=== PATIENT | male | born 1970 | race Caucasian/White ===

== ENCOUNTER → 2016-05-30 | Outpatient (CLI) | payer BC ==
--- NOTE | 2016-05-30 14:37 | XR ---
Limited cervical spine HISTORY: Neck pain, headaches 3 views of the cervical spine Cervical vertebral bodies show preserved height, near anatomic alignment, and bone mineralization is normal. Minimal retrolisthesis grade 1 C3-4, anterolisthesis grade 1 C4-5. There is loss of normal ce rvical lordosis. Loss of disc height present at C5-6 and C6-7 with associated spondylosis. Prevertebr al soft tissues are normal. IMPRESSION: Degenerative disc disease. Loss of cervical lordosis.
== END | disposition home or self-care (01) ==
LOC: RADXRMAIN 12:23
PROVIDERS: ATTEND Family Medicine
DX: M50.322 Other cervical disc degeneration at C5-C6 level (principal)
CPT/HCPCS: 72040

== ENCOUNTER → 2016-08-18 | Outpatient (CLI) | payer BC ==
--- NOTE | 2016-08-18 13:08 | CT ---
EXAMINATION TYPE: CT soft tissue neck w con DATE OF EXAM: 08/18/2016 12:39 PM COMPARISON: NONE HISTORY: Lt sided swelling, sore throat CT DLP: 315.2 mGycm CONTRAST: CT scan of the neck is performed with IV Contrast, patient injected with 100 mL of Omnipaque 300. Contrast enhanced CT of the neck was performed from the skull base through the lung apices. AIRWAY: The supraglottic, glottic, and subglottic portions of the airway appear patent and free of mass. SALIVARY GLANDS: The submandibular and parotid glands are free of mass or inflammatory process. THYROID GLAND: No nodules or masses seen. LYMPH NODES: No adenopathy seen greater than 1cm. LUNG APICES: No nodule or mass is seen. OTHER: Vascular structures are patent. Mild significant degenerative change of the cervical spine. No abscess seen. IMPRESSION: No significant abnormality to account for patient's symptoms.
== END | disposition home or self-care (01) ==
LOC: RADCTMAIN 09:25
PROVIDERS: ATTEND Otolaryngology
DX: R07.0 Pain in throat (principal); R22.1 Localized swelling, mass and lump, neck
CPT/HCPCS: 70491; Q9967; 31579

== ENCOUNTER → 2016-08-18 | Outpatient (CLI) | payer BC | END | disposition home or self-care (01) | LOC: PTMAIN 09:21 | PROVIDERS: ATTEND Otolaryngology | DX: K21.9 Gastro-esophageal reflux disease without esophagitis (principal) | CPT/HCPCS: 31579 ==

== ENCOUNTER → 2016-09-19 | Outpatient (CLI) | payer BC ==
--- NOTE | 2016-09-19 10:54 | FL ---
EXAMINATION TYPE: FL barium swallow DATE OF EXAM: 09/19/2016 COMPARISON: NONE HISTORY: Vocal cord abnormality, possible aspiration TECHNIQUE: Double air-contrast technique esophagram FINDINGS: Double air-contrast technique is utilized to evaluate the esophagus. The esophagus dilates to normal caliber has normal contour to the gastroesophageal junction. Gastroesophageal junction open s to normal caliber. This is best visualized on the fluoroscopy images. The esophageal bolus is propelled to the gastroesophageal junction. A secondary contraction was evide nt during swallowing. Tertiary contractions are evident within the distal esophagus. There are findin gs suggestive for some gastroesophageal reflux during the examination. IMPRESSION: 1. Secondary and tertiary contractions. Correlate for presbyesophagus. 2. Gastroesophageal reflux.
== END | disposition home or self-care (01) ==
LOC: RADFLWHC 09:41
PROVIDERS: ATTEND Otolaryngology
DX: K21.9 Gastro-esophageal reflux disease without esophagitis (principal)
CPT/HCPCS: 74220

== ENCOUNTER → 2018-10-29 | Outpatient (CLI) | payer BC ==
--- NOTE | 2018-10-29 13:19 | US ---
EXAMINATION TYPE: US abdomen complete DATE OF EXAM: 10/29/2018 COMPARISON: US 2013, CT 2010 CLINICAL HISTORY: R10.31 Abdominal Pain Rt lower quadrant. Intermittent RLQ pain x 1 month, history o f cholecystectomy. EXAM MEASUREMENTS: Liver Length: 14.6 cm Gallbladder Wall: surgically absent CBD: 0.4 cm Spleen: 9.8 cm Right Kidney: 11.2 x 4.4 x 5.9 cm Left Kidney: 10.5 x 4.8 x 4.6 cm Pancreas: limited by overlying midline bowel gas Liver: heterogeneous Gallbladder: surgically absent Evidence for sonographic Rodriguez's sign: no CBD: visualized portions wnl, limited by overlying midline bowel gas Spleen: 0.3cm echogenic focus Right Kidney: wnl Left Kidney: wnl Upper IVC: wnl Abd Aorta: visualized portions wnl, limited by overlying midline bowel gas Scanned RLQ at patient's area of pain: no abnormality seen at this time The liver is heterogenous The intrahepatic portion of the IVC and proximal abdominal aorta are within normal limits. The gallbladder surgically absent. Common bile duct is unremarkable. The visualized portions of the pancreas are homogenous. The spleen is unremarkable. Kidneys are symmetric and free of hydronephrosis. No renal lesions are seen. IMPRESSION: 1. Hepatic heterogeneity may reflect underlying fatty hepatic infiltration.
== END | disposition home or self-care (01) ==
LOC: RADUSWWP 10:15
PROVIDERS: ATTEND Internal Medicine
DX: R93.2 Abnormal findings on diagnostic imaging of liver and biliary tract (principal); R10.31 Right lower quadrant pain
CPT/HCPCS: 76700

== ENCOUNTER → 2019-02-19 | Outpatient (CLI) | payer BC ==
[2019-02-19 17:01] LABS: African American GFR (CKD) 102.7 (60.0-200.0); Albumin 4.7 g/dL (3.80-4.90); Albumin/Globulin Ratio 2.61 (1.60-3.17); Anion Gap 5.6 mmol/L (4.00-12.00); Calcium 9.8 mg/dL (8.7-10.3); Carbon Dioxide 29.4 mmol/L (21.6-31.8); Chol/HDL Ratio 3.64; Globulin 1.8 g/dL (1.6-3.3); LDL Cholesterol,Calculated 66.4 mg/dL (0.0-131.0); Potassium 4.6 mmol/L (3.5-5.5); Total Bilirubin 0.7 mg/dL (0.3-1.2); Total Protein 6.5 g/dL (6.2-8.2); VLDL Calculation 28.6 mg/dL (5.00-40.00)
== END | disposition home or self-care (01) ==
LOC: LABWHC1 10:05
PROVIDERS: ATTEND Nurse Practitioner Adult Health
DX: E78.2 Mixed hyperlipidemia (principal); K21.9 Gastro-esophageal reflux disease without esophagitis
CPT/HCPCS: 36415; 80053; 80061

== ENCOUNTER 2020-04-22 11:52 | Emergency (ER) | payer BC, OTHER ==
[2020-04-22 12:01] VITALS: RESP 18
--- NOTE | 2020-04-22 12:49 | ED ---
Recheck HPI - General Chief Complaint: Recheck/Abnormal Lab/Rx Stated Complaint: Neck pain Time Seen by Provider: 04/22/20 12:04 Source: patient Mode of arrival: ambulatory Limitations: no limitations - History of Present Illness Initial Comments: Patient is a 50-year-old male presenting to the emergency department with multiple complaints. Patient states he was seen by his PCP last week for some right sided jaw upper neck pain. They thought it was related to possible dental infections and he's been on amoxicillin for the last 7 days. He does have 3 more days left. He states that he feels like the pain has only improved slightly. He states the pain is not continuous, no fever or chills. Denies any trauma. Patient is also complaining of itchy skin over the past few months. He states he's never had issues with the skin in his life. He states he feels like the itchiness is worse at night. He has tried moisturizers without any improvem ent. Patient states he also feels like he is having some mild swelling at the end of the day in both of his lower legs. He denies any history of heart disease, he does have a history of fatty liver. He denies abdominal pain, no nausea or vomiting. Patient seems very anxious, he states he does have a lot of cancers that run in his family and is afraid that something is wrong with him. He states he did call his PCP for another follow-up or they have not called him back. He states he has not had regular lab work in over one year. He has no further complaints at this time. Upon arrival to the ER, his vital signs are stable. - Related Data Home Medications Medication Instructions Recorded Confirmed Amoxicillin 875 mg PO Q12HR 04/22/20 04/22/20 Fenofibrate Nanocrystallized 48 mg PO BID 04/22/20 04/22/20 [Fenofibrate] Omeprazole 20 mg PO DAILY 04/22/20 04/22/20 Allergies Allergy/AdvReac Type Severity Reaction Status Date / Time ciprofloxacin [From Cipro] AdvReac Confusion Verified 04/22/20 13:05 ciprofloxacin HCl AdvReac Confusion Verified 04/22/20 13:05 [From Cipro] Review of Systems ROS Statement: Those systems with pertinent positive or pertinent negative responses have been documented in the HPI. ROS Other: All systems not noted in ROS Statement are negative. Past Medical History Past Medical History: Pneumonia Additional Past Medical History / Comment(s): PNEUMONIA - 2011 History of Any Multi-Drug Resistant Organisms: None Reported Past Surgical History: Cholecystectomy Additional Past Surgical History / Comment(s): CHOLY - 2013 Past Anesthesia/Blood Transfusion Reactions: No Reported Reaction Past Psychological History: No Psychological Hx Reported Smoking Status: Former smoker Past Alcohol Use History: None Reported Past Drug Use History: None Reported General Exam - General Exam Comments Initial Comments: GENERAL: Patient is well-developed and well-nourished. Patient is nontoxic and in no acute distress. HEAD: Atraumatic, normocephalic. EYES: Pupils equal round and reactive to light, extraocular movements intact, sclera anicteric, conjunctiva are normal. Eyelids were unremarkable. ENT: TMs normal, nares patent, oropharynx clear without exudates. Moist mucous membranes. NECK: Normal range of motion, supple without lymphadenopathy or JVD. LUNGS: Unlabored respirations. Breath sounds clear to auscultation bilaterally and equal. No wheezes rales or rhonchi. HEART: Regular rate and rhythm without murmurs, rubs or gallops. ABDOMEN: Soft, nontender, normoactive bowel sounds. No guarding, no rebound. No masses appreciated. : Deferred MUSCULOSKELETAL: Normal extremities with adequate strength and normal range of motion, no pitting or edema. No clubbing or cyanosis. NEUROLOGICAL: Patient is alert and oriented x 3. Motor and sensory are also intact. Cranial nerves II through XII grossly intact. Symmetrical smile. Normal speech, normal gait. PSYCH: Normal mood, normal affect. SKIN: Warm, Dry, normal turgor, no rashes or lesions noted. Limitations: no limitations Course Vital Signs 04/22/20 11:55 Temperature 98.7 F Pulse Rate 97 Respiratory 18 Rate Blood Pressure 155/82 O2 Sat by Pulse 98 Oximetry Medical Decision Making - Medical Decision Making Patient is a 50-year-old male here for multiple complaints including i ntermittent right-sided jaw pain for the last 2 months, dry/itchy skin, worse at night, and leg swelling. His vital signs are stable. Exam is unremarkable, no acute findings. No swelling of the bilateral lower legs, neurovascular intact. Did run basic labs on him, there is no acute abnormality. I discussed these findings with the patient. He is to follow-up with his regular doctor. Recommended moisturizing nighttime. He is stable for discharge. He is in agreement with this plan of care. - Lab Data Result diagrams: 04/22/20 12:40 04/22/20 12:40 Lab Results 04/22/20 04/22/20 04/22/20 Range/Units 12:40 12:40 12:40 WBC 6.4 (3.8-10.6) k/uL RBC 4.80 (4.30-5.90) m/uL Hgb 14.9 (13.0-17.5) gm/dL Hct 44.1 (39.0-53.0) % MCV 92.0 (80.0-100.0) fL MCH 31.0 (25.0-35.0) pg MCHC 33.7 (31.0-37.0) g/dL RDW 12.1 (11.5-15.5) % Plt Count 312 (150-450) k/uL MPV 7.8 Neutrophils % 71 % Lymphocytes % 19 % Monocytes % 6 % Eosinophils % 1 % Basophils % 1 % Neutrophils # 4.6 (1.3-7.7) k/uL Lymphocytes # 1.2 (1.0-4.8) k/uL Monocytes # 0.4 (0-1.0) k/uL Eosinophils # 0.1 (0-0.7) k/uL Basophils # 0.1 (0-0.2) k/uL PT 10.7 (9.0-12.0) sec INR 1.0 (<1.2) APTT 23.1 (22.0-30.0) sec Sodium 141 (137-145) mmol/L Potassium 4.1 (3.5-5.1) mmol/L Chloride 108 H (98-107) mmol/L Carbon Dioxide 26 (22-30) mmol/L Anion Gap 7 mmol/L BUN 12 (9-20) mg/dL Creatinine 1.00 (0.66-1.25) mg/dL Est GFR (CKD-EPI)AfAm >90 (>60 ml/min/1.73 sqM) Est GFR (CKD-EPI)NonAf 87 (>60 ml/min/1.73 sqM) Glucose 107 H (74-99) mg/dL Calcium 10.0 (8.4-10.2) mg/dL Total Bilirubin 0.8 (0.2-1.3) mg/dL AST 22 (17-59) U/L ALT 17 (4-49) U/L Alkaline Phosphatase 42 (38-126) U/L Total Protein 7.5 (6.3-8.2) g/dL Albumin 4.8 (3.5-5.0) g/dL Triglycerides 97 (<150) mg/dL Disposition Clinical Impression: Throat pain, Dry skin, Swelling of both lower extremities Disposition: HOME SELF-CARE Condition: Stable Instructions (If sedation given, give patient instructions): Normal Exam (ED) Additional Instructions: Please return to the Emergency Department if symptoms worsen or any other concerns. Continue and finish antibiotics. Recommend moisturizer at night such as Eucerin or Aquaphor. Follow-up with your regular physician. Is patient prescribed a controlled substance at d/c from ED?: No Referrals: Amie Torres NPC [Primary Care Provider] - 1-2 days
[2020-04-22 12:51] LABS: Basophils # (A) 0.1 k/uL (0-0.2); Basophils % (A) 1 %; Eosinophils # (A) 0.1 k/uL (0-0.7); Eosinophils % (A) 1 %; HCT 44.1 % (39.0-53.0); HGB 14.9 gm/dL (13.0-17.5); Lymphocytes # (A) 1.2 k/uL (1.0-4.8); Lymphocytes % (A) 19 %; MCHC 33.7 g/dL (31.0-37.0); Mean Platelet Volume 7.8; Monocytes # (A) 0.4 k/uL (0-1.0); Monocytes % (A) 6 %; Neutrophils # (A) 4.6 k/uL (1.3-7.7); Neutrophils % (A) 71 %; Platelet Count 312 k/uL (150-450); RDW 12.1 % (11.5-15.5); WBC 6.4 k/uL (3.8-10.6)
[2020-04-22 13:01] LABS: ALT 17 U/L (4-49); AST 22 U/L (17-59); African American GFR (CKD) >90 (>60 ml/min/1.73 sqM); Albumin 4.8 g/dL (3.5-5.0); Alkaline Phosphatase 42 U/L (38-126); Anion Gap 7 mmol/L; Blood Urea Nitrogen 12 mg/dL (9-20); Carbon Dioxide 26 mmol/L (22-30); Chloride 108 mmol/L (98-107); Glucose 107 mg/dL (74-99); Non-African American GFR(CKD) 87 (>60 ml/min/1.73 sqM); Potassium 4.1 mmol/L (3.5-5.1); Sodium 141 mmol/L (137-145); Total Bilirubin 0.8 mg/dL (0.2-1.3); Total Protein 7.5 g/dL (6.3-8.2)
[2020-04-22 13:04] LABS: Partial Thromboplastin Time 23.1 sec (22.0-30.0); Prothrombin Time 10.7 sec (9.0-12.0)
[2020-04-22 13:09] LABS: Triglycerides 97 mg/dL (<150)
[2020-04-22 13:40] VITALS: BP 120/86; PULSE 82; TEMP 98
== END 2020-04-22 13:39 | disposition home or self-care (01) ==
LOC: EC 11:52
DX: R07.0 Pain in throat (principal); M79.89 Other specified soft tissue disorders; L85.3 Xerosis cutis; Z79.899 Other long term (current) drug therapy; Z88.1 Allergy status to other antibiotic agents; Z87.891 Personal history of nicotine dependence
CPT/HCPCS: 36415; 80053; 84478; 85025; 85610; 85730; 99283

== ENCOUNTER → 2020-06-03 | Outpatient (CLI) | payer OTHER ==
--- NOTE | 2020-06-03 15:24 | CT ---
EXAMINATION TYPE: CT soft tissue neck wo con DATE OF EXAM: 06/03/2020 HISTORY: right sided neck swelling, pain with swallowing COMPARISON: 08/18/2016 CT DLP: 550.4 mGycm. Automated Exposure Control for Dose Reduction was Utilized. TECHNIQUE: CT scan of the neck is performed , patient injected with 75 mL of Isovue 300, axial image s are obtained, coronal and sagittal reformatted images are reviewed. FINDINGS: Intracranial structures and globes are symmetric. Thyroid tissue is heterogeneous. Lung api cherelle clear. Vocal cords have a normal appearance. Base of the tongue symmetric. Submandibular and paro tid glands are symmetric. Lack of contrast limits assessment for adenopathy. Sinuses are clear. Parapharyngeal and peritonsilla r soft tissue calcifications incidentally noted and stable from prior exam. Scattered shotty adenopat hy seen throughout the carpal compartments of the soft tissues of the neck. Hypertrophic and degenera tive change of the spine. IMPRESSION: 1. Stable CT with no definite soft tissue mass identified. 2. Heterogeneous thyroid may represent subcentimeter thyroid nodules.
== END | disposition home or self-care (01) ==
LOC: RADCTMAIN 14:48
PROVIDERS: ATTEND Otolaryngology
DX: R22.1 Localized swelling, mass and lump, neck (principal)
CPT/HCPCS: 70490

== ENCOUNTER → 2020-06-25 | Outpatient (CLI) | payer OTHER ==
--- NOTE | 2020-06-26 09:25 | MR ---
EXAMINATION TYPE: MR angio neck wo/w con DATE OF EXAM: 06/25/2020 COMPARISON: CT soft tissue neck 06/03/2020 HISTORY: Right sided neck swelling, pain when swallowing, Attention Carotid Bulb CONTRAST: Standard multiplanar, multisequence MRI departmental protocol utilizing 7 mL intravenous Gadavist cristobal olinium contrast. 3-D [id number] imaging is performed. Some slab reconstruction artifact is pre sent. FINDINGS: There is a four-vessel arch. The right vertebral artery is dominant. Small left vertebral artery is e vident. Bilateral common carotid arteries appear normal. Plaquing is present at the carotid bifurcations more so on the left than the right. However, no flow gap to suggest a significant flow-limiting stenosis is evident. Internal carotid arteries are patent to the skull base. Vertebral arteries are patent to the skull base. No suspicious flow-limiting stenosis at the carotid bifurcations is evident. No suspicious deviation or extrinsic compression is evident. Examination is optimized for vessel evaluation. However, no susp icious vascular structure at the carotid bifurcations is identified. Scattered small lymph nodes are within the bilateral neck suspicious adenopathy is not identified. IMPRESSION: 1. Atheromatous plaquing at the left carotid bifurcation without significant flow-limiting stenosis. 2. Normal-appearing right carotid bifurcation. 3. This exam was optimized for carotid vascular evaluation. However, no suspicious masses at the righ t carotid bifurcation to account for the patient's symptoms is identified
== END ==
LOC: RADMRIMAIN 11:48
PROVIDERS: ATTEND Otolaryngology
DX: R22.1 Localized swelling, mass and lump, neck (principal); I65.22 Occlusion and stenosis of left carotid artery
CPT/HCPCS: 70549; A9585

== ENCOUNTER 2021-01-17 15:57 | Emergency (ER) | payer OTHER ==
[2021-01-17 16:56] VITALS: RESP 18; TEMP 98.8
--- NOTE | 2021-01-17 18:39 | US ---
EXAMINATION TYPE: US venous doppler duplex UE RT DATE OF EXAM: 01/17/2021 COMPARISON: NONE CLINICAL HISTORY: pain/bruising. Pain and bruising. No hx of DVT. SIDE PERFORMED: Right Right Arm: No evidence of DVT in veins imaged at this time. IMPRESSION: No sign of deep vein thrombosis in the right arm.
--- NOTE | 2021-01-17 18:47 | ED ---
Extremity Problem HPI - General Chief complaint: Extremity Problem,Nontraumatic Stated complaint: Lt Arm Bruising/Swelling Time Seen by Provider: 01/17/21 16:58 Source: patient, RN notes reviewed Mode of arrival: ambulatory Limitations: no limitations - History of Present Illness Initial comments: Patient is a 50-year-old male that presents to the emergency room and planning of right arm discomfort. He notes that he got a anoscopy several days ago had an IV in his right hand. He notes that since then he's been having some bruising that traveling up the arm. He notes that today he woke up to his bruising upper arm and into his arm pit. She denied any other issues or complaints. He was otherwise well-appearing. He denied any chest pain short ness of breath headache nausea vomiting diarrhea constipation fever fatigue chills. - Related Data Home Medications Medication Instructions Recorded Confirmed Amoxicillin 875 mg PO Q12HR 04/22/20 04/22/20 Fenofibrate Nanocrystallized 48 mg PO BID 04/22/20 04/22/20 [Fenofibrate] Omeprazole 20 mg PO DAILY 04/22/20 04/22/20 Allergies Allergy/AdvReac Type Severity Reaction Status Date / Time ciprofloxacin [From Cipro] AdvReac Confusion Verified 01/17/21 16:56 ciprofloxacin HCl AdvReac Confusion Verified 01/17/21 16:56 [From Cipro] Review of Systems ROS Statement: Those systems with pertinent positive or pertinent negative responses have been documented in the HPI. ROS Other: All systems not noted in ROS Statement are negative. Past Medical History Past Medical History: Pneumonia Additional Past Medical History / Comment(s): PNEUMONIA - 2011 History of Any Multi-Drug Resistant Organisms: None Reported Past Surgical History: Cholecystectomy Additional Past Surgical History / Comment(s): CHOLY - 2013 Past Anesthesia/Blood Transfusion Reactions: No Reported Reaction Past Psychological History: No Psychological Hx Reported Smoking Status: Former smoker Past Alcohol Use History: None Reported Past Drug Use History: None Reported General Exam Limitations: no limitations General appearance: alert, in no apparent distress Head exam: Present: atraumatic, normocephalic, normal inspection Eye exam: Present: normal appearance, PERRL, EOMI. Absent: scleral icterus, conjunctival injection, periorbital swelling Neck exam: Present: normal inspection Respiratory exam: Present: normal lung sounds bilaterally. Absent: respiratory distress, wheezes, rales, rhonchi, stridor Cardiovascular Exam: Present: regular rate, normal rhythm, normal heart sounds. Absent: systolic murmur, diastolic murmur, rubs, gallop, clicks Extremities exam: Present: normal inspection, full ROM, normal capillary refill, other (Ecchymosis of the internal right arm him a no erythema.). Absent: tenderness, pedal edema, joint swelling, calf tenderness Neurological exam: Present: alert, oriented X3 Psychiatric exam: Present: normal affect, normal mood Skin exam: Present: warm, dry, intact, normal color. Absent: rash Course Vital Signs 01/17/21 16:50 Temperature 98.8 F Pulse Rate 111 H Respiratory 18 Rate Blood Pressure 163/95 O2 Sat by Pulse 99 Oximetry Medical Decision Making - Medical Decision Making 50-year-old male complaining of right arm discomfort with bruising in his upper arm into his arm. Concern for DVT. Ultrasound of the right upper extremity ordered. Ultrasound negative for any DVT. Patient most likely has a thrombophlebitis from an IV in his hand. Case discussed with Dr. Izaguirre, patient can discharge home with follow-up primary care. Disposition Clinical Impression: Thrombophlebitis Disposition: HOME SELF-CARE Condition: Stable Instructions (If sedation given, give patient instructions): Superficial Thrombophlebitis (ED) Additional Instructions: Please return to the Emergency Department if symptoms worsen or any other concerns. Follow-up with primary care 1-2 days. Use warm compresses and Motrin for pain. Is patient prescribed a controlled substance at d/c from ED?: No Referrals: None,Stated [Primary Care Provider] - 1-2 days Time of Disposition: 18:46
[2021-01-17 18:56] VITALS: BP 130/87; PULSE 86
== END 2021-01-17 18:56 | disposition home or self-care (01) ==
LOC: EC 15:57
DX: I80.9 Phlebitis and thrombophlebitis of unspecified site (principal); Z88.1 Allergy status to other antibiotic agents; Z87.891 Personal history of nicotine dependence; Z90.49 Acquired absence of other specified parts of digestive tract
CPT/HCPCS: 99283

== ENCOUNTER → 2021-04-26 | Outpatient (CLI) | payer OTHER ==
[2021-04-26 14:11] LABS: Basophils # (A) 0.09 X 10*3/uL (0.00-0.10); Basophils % (A) 1.5 %; Eosinophils # (A) 0.12 X 10*3/uL (0.04-0.35); HCT 45.4 % (39.6-50.0); HGB 14.2 g/dL (13.0-17.0); Lymphocytes # (A) 1.92 X 10*3/uL (0.90-5.00); Lymphocytes % (A) 31.3 %; MCH 29.6 pg (27.0-32.0); MCHC 31.3 g/dL (32.0-37.0); MCV 94.6 fL (80.0-97.0); Mean Platelet Volume 10.8 fL (9.5-12.2); Monocytes # (A) 0.57 X 10*3/uL (0.20-1.00); Monocytes % (A) 9.3 %; Neutrophils # (A) 3.43 X 10*3/uL (1.80-7.70); Neutrophils % (A) 55.7 %; Platelet Count 343 X 10*3/uL (140-440); RDW 11.9 % (11.5-14.5); WBC 6.14 X 10*3/uL (4.50-10.00)
[2021-04-26 14:32] LABS: ALT 13 U/L (10-49); AST 16 U/L (14-35); African American GFR (CKD) 86.7 (60.0-200.0); Albumin 4.7 g/dL (3.8-4.9); Albumin/Globulin Ratio 2.16 (1.60-3.17); Alkaline Phosphatase 50 U/L (41-126); BUN/Creat Ratio 8.55 Ratio (12.00-20.00); Blood Urea Nitrogen 9.7 mg/dL (9.0-27.0); Calcium 10.2 mg/dL (8.7-10.3); Chloride 105 mmol/L (96-109); Chol/HDL Ratio 3.26 Ratio; Globulin 2.2 g/dL (1.6-3.3); Glucose 94 mg/dL (70-110); Non-African American GFR(CKD) 74.8 (60.0-200.0); Potassium 4.7 mmol/L (3.5-5.5); Sodium 142 mmol/L (135-145); Total Protein 6.9 g/dL (6.2-8.2); VLDL Calculation 18.92 mg/dL (5.00-40.00)
== END | disposition home or self-care (01) ==
LOC: LABWHC1 09:37
PROVIDERS: ATTEND Internal Medicine
DX: Z12.5 Encounter for screening for malignant neoplasm of prostate (principal); E78.1 Pure hyperglyceridemia; E04.1 Nontoxic single thyroid nodule
CPT/HCPCS: 80061; 80053; 84443; 85025; 36415; G0103

== ENCOUNTER → 2021-05-13 | Outpatient (CLI) | payer OTHER ==
--- NOTE | 2021-05-13 13:23 | US ---
EXAMINATION TYPE: US carotid duplex BILAT DATE OF EXAM: 05/13/2021 COMPARISON: NONE CLINICAL HISTORY: 51-year-old male I65.23 CHRISTOPHER CAROTID ARTERY STENOSIS. TECHNIQUE: Carotid duplex ultrasound examination. Indirect Doppler criteria was utilized. FINDINGS: EXAM MEASUREMENTS: RIGHT: Peak Systolic Velocity (PSV) cm/sec ----- Right CCA: 118.6 ----- Right ICA: 82.3 ----- Right ECA: 95.3 ICA/CCA ratio: 0.7 RIGHT: End Diastole cm/sec ----- Right CCA: 28.5 ----- Right ICA: 35.7 ----- Right ECA: 19.8 LEFT: Peak Systolic Velocity (PSV) cm/sec ----- Left CCA: 115.2 ----- Left ICA: 88.2 ----- Left ECA: 125.3 ICA/CCA ratio: 0.8 LEFT: End Diastole cm/sec ----- Left CCA: 29.3 ----- Left ICA: 26.8 ----- Left ECA: 25.2 VERTEBRALS (direction of flow): Right Vertebral: Antegrade Left Vertebral: Antegrade Rhythm: Normal Mine Equipment Design Engineer notes: No elevated velocities IMPRESSION: No hemodynamically significant internal carotid artery stenosis on either side. Criteria for Assigning % of Stenosis / Diameter reduction (Estimation based on the indirect measurements of the internal carotid artery velocities (ICA PSV). 1. Normal (no stenosis)=ICA PSV < 125 cm/s: ratio < 2.0: ICA EDV<40 cm/s. 2. Less than 50% stenosis=ICA PSV < 125 cm/s: ratio < 2.0: ICA EDV<40 cm/s. 3. 50 to 69% stenosis=ICA PSV of 125 to 230 cm/s: ration 2.0 ? 4.0: ICA EDV 40-100 cm/s. 4. Greater than 70% stenosis to near occlusion= ICA PSV > 230 cm/s: ratio > 4.0: ICA EDV > 100 cm/s. 5. Near occlusion= ICA PSV velocities may be low or undetectable: variable ratio and ICA EDV. 6. Total occlusion=unable to detect flow.
--- NOTE | 2021-05-13 13:25 | US ---
EXAMINATION TYPE: US thyroid st tissue head/neck DATE OF EXAM: 05/13/2021 COMPARISON: NONE CLINICAL HISTORY: 51-year-old male E04.1 THYROID NODULE. Nodules seen on CT scan TECHNIQUE: Multiple sonographic images of the thyroid gland are obtained. FINDINGS: GLAND SIZE: Right Lobe: 5.7 x 1.5 x 1.6 cm Overall Parenchyma: heterogenous Left Lobe: 4.7 x 1.3 x 1.2 cm Overall Parenchyma: heterogeneous Isthmus Thickness: 0.4 cm NODULES RIGHT: # of nodules measured on right: 0 LEFT: # of nodules measured on left: 1 1. 0.4 X 0.3 x 0.4 cm, mid medial, solid or almost completely solid, hypoechoic nodule, which is wi laly than tall, with ill-defined margins, without echogenic foci. ISTHMUS: # of nodules measured in the isthmus: 0 Bilateral neck scanned, no evidence of lymphadenopathy. IMPRESSION: 1. Borderline to mild thyromegaly with slightly heterogeneous parenchyma, possible goiter. 2. Solitary small 4 mm TR4 nodule left lower lobe. Follow-up can be considered.
--- NOTE | 2021-05-13 14:14 | CTL ---
EXAMINATION TYPE: CT Low Dose Lung DATE OF EXAM ORDERED: 05/13/2021 HISTORY: Long-term tobacco use . Lung cancer screening CT DLP: 67.[address] CTDI: 1.7 mGy Automated exposure control for dose reduction was used. SCREENING VISIT: Baseline COMPARISON: None TECHNIQUE: Low dose computed tomography scan was performed through the chest at 1 mm thick sections a nd reconstructed images in multiple planes at 1 mm and [address] DIAGNOSTIC QUALITY: Satisfactory FINDINGS: LUNG NODULES: Present, detailed below: There is 4 to 5 mm benign calcified nodule or granuloma anterior right mid lung axial image 162. Tuyet cent 4 mm benign calcified nodule axial image 156 noted. Smaller adjacent 3 mm nodules coronal image 57 may not be calcified. Benign 2 to 3 mm calcified nodule or granuloma right upper lobe laterally ax ial image 79. No suspicious greater than 5 mm noncalcified nodules. LUNGS: COPD: Severity: None Fibrosis: Severity: None Lymph nodes: Calcified right hilar and right tracheobronchial lymph nodes. Other findings: None RIGHT PLEURAL SPACE: Effusion: None Calcification: None Thickening: None Pneumothorax: None LEFT PLEURAL SPACE: Effusion: None Calcification: None Thickening: None Pneumothorax: None HEART: Heart Size: Normal Coronary Calcification: None Pericardial Effusion: None OTHER FINDINGS: Upper abdomen: Few calcifications scattered throughout the spleen. Cholecystectomy clips. Bony thorax: Mild multilevel spurring in the spine Supraclavicular region: None Other: None IMPRESSION: Evidence of old granulomatous disease. No significant greater than 5 mm noncalcified pulm onary nodules. CT LUNG RAD AND CT CHEST RECOMMENDATION: Lung-Rad 2 Benign Appearance or Behavior: Continue annual sc reening with LDCT in 12 months. S Modifier (other clinically significant findings): None
== END | disposition home or self-care (01) ==
LOC: RADUSWWP 12:12
PROVIDERS: ATTEND Internal Medicine
DX: Z12.2 Encounter for screening for malignant neoplasm of respiratory organs (principal); E04.1 Nontoxic single thyroid nodule; D71 Functional disorders of polymorphonuclear neutrophils; Z72.0 Tobacco use
CPT/HCPCS: 71271; 76536; 93880

== ENCOUNTER 2021-10-28 17:25 | Emergency (ER) | payer OTHER ==
[2021-10-28 17:31] VITALS: RESP 18; TEMP 98.5
--- NOTE | 2021-10-28 17:42 | ED ---
General Adult HPI - General Chief complaint: Recheck/Abnormal Lab/Rx Stated complaint: chest pain due to pulling something heavy Time Seen by Provider: 10/28/21 17:30 Source: patient, RN notes reviewed, old records reviewed Mode of arrival: ambulatory Limitations: no limitations - History of Present Illness Initial comments: This is a 51-year-old male who presents emergency room after having been pushing some pallets and all of a sudden he felt a pop in the left side of his chest and since then it hurts take a deep breath hurts to cough and hurts to move. Patient denies any shortness of breath or difficulty breathing. Patient states he did work the rest of the shift and has taken some Tylenol prior to arrival. Patient states she's never had this happen before. Patient denies any other process at this time. Patient states that he sits still it doesn't hurt much but if he moves his when the pain begins. - Related Data Home Medications Medication Instructions Recorded Confirmed Fenofibrate Nanocrystallized 48 mg PO BID 04/22/20 10/28/21 [Fenofibrate] Omeprazole 20 mg PO DAILY 04/22/20 10/28/21 Previous Rx's Medication Instructions Recorded Ketorolac [Toradol] 10 mg PO Q6HR #15 tab 10/28/21 Allergies Allergy/AdvReac Type Severity Reaction Status Date / Time ciprofloxacin [From Cipro] AdvReac Confusion Verified 10/28/21 18:29 ciprofloxacin HCl AdvReac Confusion Verified 10/28/21 18:29 [From Cipro] Review of Systems ROS Statement: Those systems with pertinent positive or pertinent negative responses have been documented in the HPI. ROS Other: All systems not noted in ROS Statement are negative. Past Medical History Past Medical History: GERD/Reflux, Pneumonia Additional Past Medical History / Comment(s): PNEUMONIA - 2011 History of Any Multi-Drug Resistant Organisms: None Reported Past Surgical History: Cholecystectomy Additional Past Surgical History / Comment(s): CHOLY - 2013 Past Anesthesia/Blood Transfusion Reactions: No Reported Reaction Past Psychological History: No Psychological Hx Reported Smoking Status: Former smoker Past Alcohol Use History: None Reported Past Drug Use History: None Reported General Exam - General Exam Comments Initial Comments: GENERAL: Patient is well-developed and well-nourished. Patient is nontoxic and well- hydrated and is in mild distress. ENT: Neck is soft and supple. No significant lymphadenopathy is noted. Oropharynx is clear. Moist mucous membranes. Neck has full range of motion without eliciting any pain. EYES: The sclera were anicteric and conjunctiva were pink and moist. Extraocular movements were intact and pupils were equal round and reactive to light. Eyelids were unremarkable. PULMONARY: Unlabored respirations. Good breath sounds bilaterally. No audible rales rhonchi or wheezing was noted. CARDIOVASCULAR: There is a regular rate and rhythm without any murmurs gallops or rubs. Patient has left anterior wall tenderness below the nipple on the left. ABDOMEN: Soft and nontender with normal bowel sounds. SKIN: Skin is clear with no lesions or rashes and otherwise unremarkable. NEUROLOGIC: Patient is alert and oriented x3. Cranial nerves II through XII are grossly intact. Motor and sensory are also intact. Normal speech, volume and content. Symmetrical smile. MUSCULOSKELETAL: Normal extremities with adequate strength and full range of motion. LYMPHATICS: No significant lymphadenopathy is noted PSYCHIATRIC: Normal psychiatric evaluation. Limitations: no limitations Course Vital Signs 10/28/21 10/28/21 17:26 18:31 Temperature 98.5 F Pulse Rate 95 77 Respiratory 18 18 Rate Blood Pressure 127/79 109/76 O2 Sat by Pulse 96 99 Oximetry Medical Decision Making - Medical Decision Making X-ray of the chest and ribs show no acute abnormality. Patient did not want any pain medication in the emergency department. Disposition Clinical Impression: Intercostal muscle strain Disposition: HOME SELF-CARE Condition: Good Additional Instructions: Patient should use the incentive spirometer. Patient should take Toradol as prescribed Prescriptions: Ketorolac [Toradol] 10 mg PO Q6HR #15 tab Is patient prescribed a controlled substance at d/c from ED?: No Referrals: Laureano Ceja MD [Primary Care Provider] - 1-2 days Time of Disposition: 19:49
[2021-10-28 18:54] VITALS: BP 109/76; PULSE 77
--- NOTE | 2021-10-28 19:08 | XR ---
PROCEDURE: XR ribs LT w PA chest xray - total 5V DATE AND TIME: 10/28/2021 6:36 PM CLINICAL INDICATION: Pain; Trauma TECHNIQUE: 5 views; Dept protocol COMPARISON: 07/17/2014 FINDINGS: There is no nondisplaced rib fracture, and no malalignment. The visualized lungs, pleural spaces, and soft tissues are negative for acute findings. IMPRESSION: No acute radiographic process.
== END 2021-10-28 20:00 | disposition home or self-care (01) ==
LOC: EC 17:25
DX: S29.011A Strain of muscle and tendon of front wall of thorax, initial encounter (principal); X50.0XXA Overexertion from strenuous movement or load, initial encounter; K21.9 Gastro-esophageal reflux disease without esophagitis; Z87.891 Personal history of nicotine dependence; Z79.899 Other long term (current) drug therapy; Z88.1 Allergy status to other antibiotic agents
CPT/HCPCS: 99284

== ENCOUNTER 2021-10-30 16:51 | Emergency (ER) | payer OTHER ==
[2021-10-30 17:07] VITALS: BP 131/83; PULSE 101; RESP 18; TEMP 98.1
--- NOTE | 2021-10-30 18:50 | ED ---
General Adult HPI - General Chief complaint: Recheck/Abnormal Lab/Rx Stated complaint: Rib pain Time Seen by Provider: 10/30/21 18:49 Source: patient Mode of arrival: ambulatory Limitations: no limitations - History of Present Illness Initial comments: Patient presents to the ED for reevaluation. Patient was seen in the ED 2 days ago for left-sided chest pain. Patient states that he felt "a pop", and developed sudden left-sided chest pain while pushing something heavy at work 2 days ago. Patient had negative rib x-rays obtained in the ED at that time. Patient states that his pain continues, and he now states that his pain radiates to the left side of his back. Patient also states that it feels like like there is "fluid" in his chest. Patient states that his pain is worse with certain movements and deep inspiration. Patient denies fever or chills, direct chest trauma, fall, neck/arm/jaw pain, fever or chills, cough or cold symptoms, dys pnea, nausea/vomiting/diaphoresis, abdominal pain, dysuria/hematuria/urinary frequency/urinary symptoms, leg or calf swelling or pain, or any other symptoms or complaints. - Related Data Home Medications Medication Instructions Recorded Confirmed Fenofibrate Nanocrystallized 48 mg PO BID 04/22/20 10/28/21 [Fenofibrate] Omeprazole 20 mg PO DAILY 04/22/20 10/28/21 Previous Rx's Medication Instructions Recorded Ketorolac [Toradol] 10 mg PO Q6HR #15 tab 10/28/21 Allergies Allergy/AdvReac Type Severity Reaction Status Date / Time ciprofloxacin [From Cipro] AdvReac Confusion Verified 10/30/21 17:07 ciprofloxacin HCl AdvReac Confusion Verified 10/30/21 17:07 [From Cipro] Review of Systems ROS Statement: Those systems with pertinent positive or pertinent negative responses have been documented in the HPI. ROS Other: All systems not noted in ROS Statement are negative. Past Medical History Past Medical History: GERD/Reflux, Pneumonia Additional Past Medical History / Comment(s): PNEUMONIA - 2011 History of Any Multi-Drug Resistant Organisms: None Reported Past Surgical History: Cholecystectomy Additional Past Surgical History / Comment(s): CHOLY - 2013 Past Anesthesia/Blood Transfusion Reactions: No Reported Reaction Past Psychological History: No Psychological Hx Reported Smoking Status: Former smoker Past Alcohol Use History: None Reported Past Drug Use History: None Reported General Exam Limitations: no limitations General appearance: alert, in no apparent distress Head exam: Present: atraumatic, normocephalic Eye exam: Present: normal appearance, EOMI ENT exam: Present: mucous membranes moist Neck exam: Present: other (Trachea is in midline) Respiratory exam: Present: normal lung sounds bilaterally, other (Left anteroinferior chest wall tenderness that reproduces the patient's pain; no chest wall deformity or crepitation is appreciated). Absent: respiratory distress, wheezes, rales, rhonchi, stridor Cardiovascular Exam: Present: regular rate, normal rhythm, normal heart sounds, other (Normal radial pulses bilaterally) GI/Abdominal exam: Present: soft. Absent: distended, tenderness, guarding Extremities exam: Present: other (Negative Homans sign bilaterally). Absent: tenderness, pedal edema, calf tenderness Back exam: Present: full ROM. Absent: tenderness, CVA tenderness (R), CVA tenderness (L) Neurological exam: Present: alert, oriented X3. Absent: motor sensory deficit Psychiatric exam: Present: normal affect, normal mood Skin exam: Present: warm, dry, intact, normal color Course Vital Signs 10/30/21 17:03 Temperature 98.1 F Pulse Rate 101 H Respiratory 18 Rate Blood Pressure 131/83 O2 Sat by Pulse 98 Oximetry EKG Findings - EKG Comments: EKG Findings:: Normal sinus rhythm, ventricular rate of 61 bpm, no ectopy, normal OH and QRS intervals, normal QT interval, normal axis, no ST or T-wave abnormality Medical Decision Making - Medical Decision Making Patient's labs and CT chest are negative. I suspect that the patient's symptoms are secondary to a chest wall muscular strain. Patient is aware of his test results, and he feels comfortable being discharged home at this time. Patient was counseled about chest wall strains, and he was clearly explained return and follow-up instructions. Patient was instructed to follow up closely with his primary care provider. Patient feels comfortable with this plan. - Lab Data Lab Results 10/30/21 10/30/21 Range/Units 19:36 19:36 D-Dimer 0.34 (<0.60) mg/L FEU Troponin I <0.012 (0.000-0.034) ng/mL - Radiology Data Noncontrast CT chest: No acute intrathoracic process. Left ribs appear intact. Disposition Clinical Impression: Strain of chest wall Disposition: HOME SELF-CARE Condition: Stable Instructions (If sedation given, give patient instructions): Chest Wall Pain (ED) Additional Instructions: Return to the ER immediately should you develop new or worsening pain, shortness of breath, feeling dizzy or faint, a fever, or new or worsening symptoms. Follow up closely with your primary care provider. Is patient prescribed a controlled substance at d/c from ED?: No Referrals: Laureano Ceja MD [Primary Care Provider] - 1-2 days Time of Disposition: 21:50
--- NOTE | 2021-10-30 21:13 | CT ---
EXAMINATION TYPE: CT chest wo con CT DLP: 255.6 mGycm, Automated exposure control for dose reduction was used. DATE OF EXAM: 10/30/2021 9:01 PM COMPARISON: CT chest 05/13/2021 CLINICAL INDICATION:Male, 51 years old with history of Left-sided chest wall pain; TECHNIQUE: Multiple axial images were obtained through the chest. Contrast used: none. Oral contrast used: none. FINDINGS: LUNGS/ PLEURA: No evidence of focal consolidation, pneumothorax or pleural effusion. Calcified granul omas are seen throughout the lungs. Mild posterior subsegmental atelectasis. AIRWAY: Patent and unremarkable. HEART: Size within normal limits. MEDIASTINUM: No gross evidence of adenopathy. Partially calcified lymph nodes are seen near the right pulmonary hilum and within the mediastinum. VASCULATURE: No aortic aneurysm. MUSCULOSKELETAL: No acute osseous abnormalities, left rib cage is intact. SOFT TISSUES/LYMPH NODES: Unremarkable. LOWER NECK: No significant findings. UPPER ABDOMEN: Gallbladder is surgically absent. Scattered splenic granulomas are present. IMPRESSION: No acute intrathoracic process. Left ribs appear intact.
== END 2021-10-30 22:17 | disposition home or self-care (01) ==
LOC: EC 16:51
DX: S29.011A Strain of muscle and tendon of front wall of thorax, initial encounter (principal); K21.9 Gastro-esophageal reflux disease without esophagitis; Z79.83 Long term (current) use of bisphosphonates; Z87.891 Personal history of nicotine dependence; Z88.1 Allergy status to other antibiotic agents
CPT/HCPCS: 36415; 71250; 84484; 85379; 93005; 99284

== ENCOUNTER → 2021-11-03 | Outpatient (CLI) | payer OTHER ==
--- NOTE | 2021-11-04 08:12 | US ---
EXAMINATION TYPE: US thyroid st tissue head/neck DATE OF EXAM: 11/03/2021 COMPARISON: 05/13/2021 CLINICAL HISTORY: 51-year-old male E04.1 THYROID NODULE. TECHNIQUE: Multiple sonographic images of the thyroid gland are obtained. FINDINGS: GLAND SIZE: Right Lobe: 5.0 x 1.5 x 1.6 cm Overall Parenchyma: Mildly heterogenous Left Lobe: 4.8 x 1.6 x 1.2 cm Overall Parenchyma: Mildly heterogeneous Isthmus Thickness: 0.3 cm NODULES RIGHT: # of nodules measured on right: 0 LEFT: # of nodules measured on left: 0 ISTHMUS: # of nodules measured in the isthmus: 0 Bilateral neck scanned: A prominent but nonenlarged lymph nodes seen within the right neck: 1.3 x 1.1 x 0.5 cm. Unable to visualize parathyroid tissue at this time. Unable to visualize borders of any discrete nodules at this time. IMPRESSION: 1. Borderline to mild thyromegaly with similar slight glandular heterogeneity, possible goiter. 2. The previous small 4 mm nodule at the left lower lobe is no longer seen. In
== END | disposition home or self-care (01) ==
LOC: RADUSWWP 16:23
PROVIDERS: ATTEND Internal Medicine
DX: E04.9 Nontoxic goiter, unspecified (principal)
CPT/HCPCS: 76536

== ENCOUNTER → 2022-04-23 | Outpatient (CLI) | payer OTHER ==
[2022-04-23 16:46] LABS: Basophils # (A) 0.08 X 10*3/uL (0.00-0.10); Basophils % (A) 1.1 %; Eosinophils # (A) 0.13 X 10*3/uL (0.04-0.35); Eosinophils % (A) 1.8 %; HCT 45.5 % (39.6-50.0); HGB 14.2 g/dL (13.0-17.0); Immature Grans, Automated 0.3 %; Lymphocytes # (A) 1.89 X 10*3/uL (0.90-5.00); Lymphocytes % (A) 26.5 %; MCH 29.7 pg (27.0-32.0); MCHC 31.2 g/dL (32.0-37.0); MCV 95.2 fL (80.0-97.0); Mean Platelet Volume 10.9 fL (9.5-12.2); Monocytes # (A) 0.55 X 10*3/uL (0.20-1.00); Monocytes % (A) 7.7 %; NRBC Per 100 WBC 0 /100 WBCS (0.0-0.0); Neutrophils # (A) 4.46 X 10*3/uL (1.80-7.70); Neutrophils % (A) 62.6 %; Platelet Count 295 X 10*3/uL (140-440); RBC 4.78 X 10*6/uL (4.40-5.60); WBC 7.13 X 10*3/uL (4.50-10.00)
[2022-04-23 17:00] LABS: ALT 16 U/L (10-49); AST 18 U/L (14-35); Albumin 4.8 g/dL (3.8-4.9); Albumin/Globulin Ratio 2.35 (1.60-3.17); Alkaline Phosphatase 51 U/L (41-126); BUN/Creat Ratio 12.11 Ratio (12.00-20.00); Blood Urea Nitrogen 13.2 mg/dL (9.0-27.0); Calcium 9.9 mg/dL (8.7-10.3); Carbon Dioxide 26.2 mmol/L (20.0-27.5); Chloride 105 mmol/L (96-109); Chol/HDL Ratio 3.46 Ratio; Globulin 2.1 g/dL (1.6-3.3); Glucose 93 mg/dL (70-110); LDL Cholesterol,Calculated 103.2 mg/dL (0.0-131.0); Non-African American GFR(CKD) 77.6 (60.0-200.0); Potassium 4.8 mmol/L (3.5-5.5); Sodium 143 mmol/L (135-145); Total Protein 6.9 g/dL (6.2-8.2); VLDL Calculation 15.58 mg/dL (5.00-40.00)
== END | disposition home or self-care (01) ==
LOC: LABWHC1 10:20
PROVIDERS: ATTEND Internal Medicine
DX: Z00.00 Encounter for general adult medical examination without abnormal findings (principal); Z12.5 Encounter for screening for malignant neoplasm of prostate
CPT/HCPCS: 80061; 80053; 84443; 85025; 36415; G0103

== ENCOUNTER → 2022-04-30 | Outpatient (CLI) | payer OTHER ==
--- NOTE | 2022-05-01 21:45 | CT ---
EXAMINATION TYPE: CT chest wo con CT DLP: 168.40 mGycm, Automated exposure control for dose reduction was used. DATE OF EXAM: 04/30/2022 8:26 AM COMPARISON: CT chest 10/30/2021 and 05/13/2021 CLINICAL INDICATION:Male, 52 years old with history of R91.1 Lung nodule, Lung nodule. Follow up. Fam kristy hx lung ca TECHNIQUE: Multiple axial images were obtained through the chest. Sagittal and coronal reformats were created for review. Contrast used: none. Oral contrast used: none. FINDINGS: LUNGS/ PLEURA: Scattered calcified granulomas in the right lung near the right minor fissure anterior ly. AIRWAY: Patent and unremarkable. HEART: Size within normal limits. MEDIASTINUM: No gross evidence of adenopathy. Partially calcified right hilum and mediastinal lymph n odes. VASCULATURE: No aortic aneurysm. MUSCULOSKELETAL: No acute osseous abnormalities SOFT TISSUES/LYMPH NODES: Unremarkable. LOWER NECK: No significant findings. UPPER ABDOMEN: The gallbladder surgically absent. Calcified granulomas within the spleen. IMPRESSION: No new or enlarging pulmonary nodules. No acute process.
== END | disposition home or self-care (01) ==
LOC: RADCTMAIN 07:59
PROVIDERS: ATTEND Internal Medicine
DX: R91.1 Solitary pulmonary nodule (principal); Z80.1 Family history of malignant neoplasm of trachea, bronchus and lung
CPT/HCPCS: 71250

== ENCOUNTER → 2022-08-31 | Day surgery (SDC) | payer OTHER ==
[2022-08-29 14:21] VITALS: BMI 22.9
[~2022-08-31] MED LIST: LACTATED RINGERS 1,000 ML IV SCH; PROPOFOL 10 MG/ML 20 ML VIAL IV ONE
[2022-08-31 10:22] VITALS: RESP 16; TEMP 97.6
--- NOTE | 2022-08-31 11:33 | P.PCN ---
Date of Procedure: 08/31/22 Procedure(s) Performed: BRIEF HISTORY: Patient is a 52-year-old, pleasant, white male scheduled for an upper endoscopy as a part of evaluation of long-standing history of GERD. He is maintained on omeprazole 20 mg daily with good relief of his symptoms. He occasionally has breakthrough heartburn with certain foods.. PROCEDURE PERFORMED: Esophagogastroduodenoscopy with biopsy PREOPERATIVE DIAGNOSI Long-standing history of GERD IV sedation per anesthesia. PROCEDURE: After informed consent was obtained, the patient was brought into the endoscopy unit. IV sedation was administered by Anesthesia under continuous monitoring. Initially the Olympus GIF-140 video endoscope was inserted into the mouth. Esophagus intubated without any difficulty. It was gradually advanced into the stomach and duodenum and carefully examined. The bulb and the second part of the duodenum appeared normal. The scope at this time was withdrawn to the stomach, adequately insufflated with air, and upon careful examination, mucosa of the antrum, body, cardia and the fundus appeared normal. the small gastric polyps in the body the stomach and a biopsy. The scope was then withdrawn into the esophagus. small sliding type hiatal hernia noted. The GE junction was located at 39 cm from the incisors. The esophagus appeared normal. There were no erosions or ulcerations seen and the patient tolerated the procedure well. IMPRESSION: 1. Mild antral gastritis 2 Small hiatal hernia but no evidence of esophagitis or Oquendo's esophagus. RECOMMENDATIONS: The findings of this examination were discussed with the patient as well as his family. He was advised to follow with the biopsy results. Continue with omeprazole 20 mg daily and follow antireflux measures.
[2022-08-31 11:47] VITALS: BP 106/71; PULSE 85
== END ==
LOC: ORWHC2ENDO 09:37
PROVIDERS: ATTEND Internal Medicine Gastroenterology
DX: K31.7 Polyp of stomach and duodenum (principal); K29.50 Unspecified chronic gastritis without bleeding; K21.9 Gastro-esophageal reflux disease without esophagitis; K44.9 Diaphragmatic hernia without obstruction or gangrene; E78.5 Hyperlipidemia, unspecified; Z79.899 Other long term (current) drug therapy
CPT/HCPCS: 43239; 88305

== ENCOUNTER → 2022-11-03 | Outpatient (CLI) | payer OTHER ==
--- NOTE | 2022-10-19 15:34 | XR ---
EXAMINATION TYPE: XR chest 2V DATE OF EXAM: 10/19/2022 COMPARISON: 10/28/2021 TECHNIQUE: PA and lateral views submitted. HISTORY: Chest pain FINDINGS: The lungs are clear and there is no pneumothorax, pleural effusion, or focal pneumonia. Heart size normal and no overt failure. Osseous structures demonstrate hypertrophic and degenerative changes of the spine. Surgical clips in gallbladder fossa. Biapical pleural thickening. IMPRESSION: 1. No acute process.
--- NOTE | 2022-11-03 18:15 | CA ---
Stress Echo Report Leonides Gabriel Age: 52 Gender: M : 1970 Exam Date: 11/03/2022 10:34 Exam Location: [place] [facility] Ht (in): 70 Wt (lb): 163 Ordering Physician: Eloy Ralph MD Referring Physician: eloy ralph,, Civil Engineering Professor: CORI, Technologist Procedure CPT: Indication: R07.9 CHEST PAIN ICD-9 Codes: Rhythm: Patient History: Chest pain shortness of breath and palpitations Cardiac Medications: Medications in past 24 hours: Contrast: Stress Results Protocol: Murali Total dose(mL): Exercise Duration (min:sec): Max ST Depression (mm): Angina Score: Ordaz Score: METS: 7.7 Resting HR: 78 Resting BP: 136 / 81 Peak HR: 162 Peak BP: 166 / 89 Max Predicted HR: 168 96 % Max Predicted HR Target HR: 143 Double Product: [id number] Stress Summary: BP Response: Normal Reason for Termination: Reached target heart rate or work-load Cardiac Symptoms: Dyspnea ECG Analysis Resting ECG: Normal sinus rhythm, normal ECG Stress ECG: No abnormal ST/T wave changes with exercise Arrhythmia: Occasional PVCs Echo Analysis Resting Echo: Normal resting echocardiogram. Peak Echo Analysis: Normal wall thickening and motion MEASUREMENTS (Male/Female) Normal Values CONCLUSIONS 1. Average exercise tolerance with normal electrocardiographic response to exercise 2. Normal stress echocardiogram with no evidence of stress induced ischemia Dr. Steven Paul MD (Electronically Signed) Final Date: 03 November 2022 18:14
== END | disposition home or self-care (01) ==
LOC: RADNMMAIN 10-19 15:18
PROVIDERS: ATTEND Internal Medicine
DX: R07.9 Chest pain, unspecified (principal); R06.00 Dyspnea, unspecified
CPT/HCPCS: 71046; 93351

== ENCOUNTER → 2022-12-20 | Outpatient (CLI) | payer OTHER ==
[2022-12-20 12:59] LABS: Basophils % (A) 0 %; Eosinophils # (A) 0.1 k/uL (0-0.7); Eosinophils % (A) 1 %; HCT 46.6 % (39.0-53.0); HGB 14.9 gm/dL (13.0-17.5); Lymphocytes # (A) 1.7 k/uL (1.0-4.8); Lymphocytes % (A) 12 %; MCH 30.3 pg (25.0-35.0); MCV 94.6 fL (80.0-100.0); Monocytes # (A) 0.5 k/uL (0-1.0); Monocytes % (A) 4 %; Neutrophils # (A) 12.1 k/uL (1.3-7.7); Neutrophils % (A) 83 %; Platelet Count 302 k/uL (150-450); RBC 4.93 m/uL (4.30-5.90); RDW 12.3 % (11.5-15.5); WBC 14.7 k/uL (3.8-10.6)
[2022-12-20 13:11] LABS: Ionized Calcium 5.2 mg/dL (4.5-5.3)
[2022-12-20 13:30] LABS: African American GFR (CKD) >90 (>60 ml/min/1.73 sqM); Anion Gap 10 mmol/L; Blood Urea Nitrogen 10 mg/dL (9-20); Carbon Dioxide 25 mmol/L (22-30); Chloride 105 mmol/L (98-107); Glucose 81 mg/dL (74-99); Non-African American GFR(CKD) 84 (>60 ml/min/1.73 sqM); Potassium 4.2 mmol/L (3.5-5.1); Sodium 140 mmol/L (137-145)
[2022-12-20 16:59] LABS: Albumin 5.2 d/dL (3.8-4.9); Protein, Total 7.4 d/dL (6.2-8.2)
[2022-12-21 17:04] LABS: Gamma Globulin 0.93 d/dL (0.70-1.50)
== END | disposition home or self-care (01) ==
LOC: LABWHC1 11:37
PROVIDERS: ATTEND Internal Medicine
DX: E83.52 Hypercalcemia (principal)
CPT/HCPCS: 36415; 80048; 82306; 82330; 82652; 83970; 84165; 85025

== ENCOUNTER → 2023-04-21 | Outpatient (CLI) | payer OTHER | END | disposition home or self-care (01) | LOC: LABWHC1 07:46 | PROVIDERS: ATTEND Nurse Practitioner Family | DX: R10.31 Right lower quadrant pain (principal) | CPT/HCPCS: 36415; 83516 ==

== ENCOUNTER → 2023-05-03 | Outpatient (CLI) | payer OTHER ==
--- NOTE | 2023-05-05 14:17 | CTL ---
EXAMINATION TYPE: CT Low Dose Lung DATE OF EXAM ORDERED: 05/03/2023 HISTORY: Solitary pulmonary nodule, former smoker. Lung cancer screening CT DLP: 61.[address] CTDI: 1.80 mGy Automated exposure control for dose reduction was used. SCREENING VISIT: Subsequent COMPARISON: To 322 TECHNIQUE: Low dose computed tomography scan was performed through the chest at 1 mm thick sections a nd reconstructed images in the coronal plane at [address] DIAGNOSTIC QUALITY: Satisfactory FINDINGS: LUNG NODULES: None. LUNGS: COPD: Severity: None Fibrosis: Severity: None Lymph nodes: None some calcified lymphadenopathy in the being the mediastinum. Other findings: None RIGHT PLEURAL SPACE: Effusion: None Calcification: None Thickening: None Pneumothorax: None LEFT PLEURAL SPACE: Effusion: None Calcification: None Thickening: None Pneumothorax: None HEART: Heart Size: Normal Coronary calcification: None Pericardial effusion: None OTHER FINDINGS: Upper abdomen: Normal Bony thorax: Normal Supraclavicular region: Other: Ascending thoracic aorta at the level the main pulmonary artery measures 2.8 cm. The main pul monary artery at the bifurcation measures 2.1 cm. IMPRESSION: 1. No suspicious changes to suggest primary or metastatic neoplasm FOLLOW UP CT CHEST RECOMMENDATION: Low-dose CT chest one year CT LUNG RAD: Lung-Rad 1 Negative
== END | disposition home or self-care (01) ==
LOC: RADCTMAIN 09:51
PROVIDERS: ATTEND Internal Medicine
DX: Z12.2 Encounter for screening for malignant neoplasm of respiratory organs (principal); R91.1 Solitary pulmonary nodule; Z87.891 Personal history of nicotine dependence
CPT/HCPCS: 71271

== ENCOUNTER → 2023-05-03 | Outpatient (CLI) | payer OTHER ==
[2023-05-03 15:41] LABS: Basophils # (A) 0.08 X 10*3/uL (0.00-0.10); Basophils % (A) 1.1 %; Eosinophils # (A) 0.23 X 10*3/uL (0.04-0.35); Eosinophils % (A) 3.2 %; HCT 44.5 % (39.6-50.0); HGB 14.3 g/dL (13.0-17.0); Lymphocytes # (A) 1.91 X 10*3/uL (0.90-5.00); Lymphocytes % (A) 26.6 %; MCH 29.7 pg (27.0-32.0); MCHC 32.1 g/dL (32.0-37.0); MCV 92.5 FL (80.0-97.0); Mean Platelet Volume 11.3 FL (9.5-12.2); NRBC Per 100 WBC 0 X 10*3/uL (0.00-0.01); Neutrophils # (A) 4.44 X 10*3/uL (1.80-7.70); Platelet Count 317 X 10*3/uL (140-440); RBC 4.81 X 10*6/uL (4.40-5.60); WBC 7.17 X 10*3/uL (4.50-10.00)
[2023-05-03 16:04] LABS: Chol/HDL Ratio 3.24 Ratio; LDL Cholesterol,Calculated 88.8 mg/dL (0.0-131.0); VLDL Calculation 18.32 mg/dL (5.00-40.00)
[2023-05-03 16:09] LABS: PSA Annual Screen 0.952 ng/mL (0.000-4.000)
[2023-05-04 15:25] LABS: ALT 13 U/L (10-49); AST 20 U/L (14-35); Albumin 4.9 g/dL (3.8-4.9); Albumin/Globulin Ratio 2.04 Ratio (1.60-3.17); Alkaline Phosphatase 48 U/L (41-126); BUN/Creat Ratio 8.55 Ratio (12.00-20.00); Blood Urea Nitrogen 9.4 mg/dL (9.0-27.0); Calcium 10.1 mg/dL (8.7-10.3); Carbon Dioxide 23.4 mmol/L (21.6-31.8); Chloride 104 mmol/L (96-109); Globulin 2.4 g/dL (1.6-3.3); Glucose 85 mg/dL (70-110); Potassium 4.3 mmol/L (3.5-5.5); Sodium 143 mmol/L (135-145); Total Bilirubin 0.7 mg/dL (0.3-1.2); Total Protein 7.3 g/dL (6.2-8.2)
== END | disposition home or self-care (01) ==
LOC: LABWHC1 08:54
PROVIDERS: ATTEND Internal Medicine
DX: Z00.00 Encounter for general adult medical examination without abnormal findings (principal); Z12.5 Encounter for screening for malignant neoplasm of prostate
CPT/HCPCS: 80061; 84443; 85025; 36415; G0103; 80053

== ENCOUNTER → 2023-12-29 | Outpatient (CLI) | payer OTHER ==
[2023-12-29 10:30] LABS: Ionized Calcium 5.4 mg/dL (4.5-5.3)
[2023-12-29 14:57] LABS: Basophils # (A) 0.08 X 10*3/uL (0.00-0.10); Basophils % (A) 1.2 %; Eosinophils # (A) 0.18 X 10*3/uL (0.04-0.35); Eosinophils % (A) 2.8 %; HCT 45.8 % (39.6-50.0); HGB 14.8 g/dL (13.0-17.0); Lymphocytes # (A) 1.61 X 10*3/uL (0.90-5.00); Lymphocytes % (A) 24.6 %; MCH 30.3 pg (27.0-32.0); MCHC 32.3 g/dL (32.0-37.0); MCV 93.9 FL (80.0-97.0); Mean Platelet Volume 11.3 FL (9.5-12.2); Monocytes # (A) 0.47 X 10*3/uL (0.20-1.00); Monocytes % (A) 7.2 %; NRBC Per 100 WBC 0 X 10*3/uL (0.00-0.01); Neutrophils # (A) 4.19 X 10*3/uL (1.80-7.70); Platelet Count 316 X 10*3/uL (140-440); RBC 4.88 X 10*6/uL (4.40-5.60); RDW 12.2 % (11.5-14.5); WBC 6.54 X 10*3/uL (4.50-10.00)
[2023-12-29 15:35] LABS: ALT 10 U/L (10-49); AST 15 U/L (14-35); Albumin 4.8 g/dL (3.8-4.9); Albumin/Globulin Ratio 2.18 Ratio (1.60-3.17); Alkaline Phosphatase 48 U/L (41-126); BUN/Creat Ratio 11.09 Ratio (12.00-20.00); Blood Urea Nitrogen 12.2 mg/dL (9.0-27.0); Calcium 10.2 mg/dL (8.7-10.3); Carbon Dioxide 25.8 mmol/L (21.6-31.8); Chloride 105 mmol/L (96-109); Chol/HDL Ratio 3.58 Ratio; Globulin 2.2 g/dL (1.6-3.3); Glucose 99 mg/dL (70-110); LDL Cholesterol,Calculated 108.4 mg/dL (0.0-131.0); Potassium 4.2 mmol/L (3.5-5.5); Sodium 141 mmol/L (135-145); Total Bilirubin 0.6 mg/dL (0.3-1.2)
== END | disposition home or self-care (01) ==
LOC: LABWHC1 08:28
PROVIDERS: ATTEND Internal Medicine
DX: Z12.5 Encounter for screening for malignant neoplasm of prostate (principal); R41.3 Other amnesia; R78.1 Finding of opiate drug in blood
CPT/HCPCS: 36415; 80053; 80061; 82140; 82330; 82607; 82746; 84443; 85025; 86780

== ENCOUNTER → 2024-01-01 | Outpatient (CLI) | payer OTHER ==
--- NOTE | 2024-01-02 13:05 | MR ---
EXAMINATION TYPE: MR brain wo/w con DATE OF EXAM: 01/01/2024 7:31 AM COMPARISON: NONE HISTORY: Memory loss CONTRAST: Patient received 7 mL intravenous Gadavist gadolinium contrast. Multiplanar and multispin-echo imaging of the brain was performed . Pre and post contrast enhanced i mages are obtained. The ventricles, basal cisterns and sulci overlying the cerebral convexities are mildly enlarged. There is evidence of mild periventricular white matter ischemic demyelination. Remote deep white matter insults are also noted. No acute edema is seen on diffusion weighted imaging. There is no evidence for midline shift or mass effect. Acute intracranial hemorrhage or extra-axial collection is not evident. No enhancing lesions are seen. The paranasal sinuses and mastoid air cells are well-aerated. IMPRESSION: Mild Age-related atrophic and chronic small vessel ischemic change. No acute intracranial process at this time. No enhancing lesions are seen. [facility], , 01/02/2024 1:03 PM
== END | disposition home or self-care (01) ==
LOC: RADMRIMAIN 06:30
PROVIDERS: ATTEND Internal Medicine
DX: R41.3 Other amnesia
CPT/HCPCS: 70553

== ENCOUNTER → 2024-04-01 | Outpatient (CLI) | payer OTHER ==
[2024-04-01 15:17] LABS: Basophils # (A) 0.09 X 10*3/uL (0.00-0.10); Basophils % (A) 1.4 %; Eosinophils # (A) 0.09 X 10*3/uL (0.04-0.35); Eosinophils % (A) 1.4 %; HCT 44.1 % (39.6-50.0); Lymphocytes # (A) 1.59 X 10*3/uL (0.90-5.00); Lymphocytes % (A) 25.1 %; MCH 30.2 pg (27.0-32.0); MCHC 31.7 g/dL (32.0-37.0); Mean Platelet Volume 11.1 FL (9.5-12.2); Monocytes # (A) 0.44 X 10*3/uL (0.20-1.00); Monocytes % (A) 6.9 %; NRBC Per 100 WBC 0 X 10*3/uL (0.00-0.01); Neutrophils # (A) 4.11 X 10*3/uL (1.80-7.70); Neutrophils % (A) 64.9 %; Platelet Count 308 X 10*3/uL (140-440); RBC 4.64 X 10*6/uL (4.40-5.60); RDW 12.3 % (11.5-14.5); WBC 6.34 X 10*3/uL (4.50-10.00)
[2024-04-01 16:34] LABS: % Iron Saturation 45.18 (15.00-50.00); BUN/Creat Ratio 8.09 Ratio (12.00-20.00); Blood Urea Nitrogen 8.9 mg/dL (9.0-27.0); Glucose 85 mg/dL (70-110); Iron 164 UG/DL (65-175); Total Iron Binding Capacity 363 UG/DL (228-460)
[2024-04-01 16:35] LABS: ALT 9 U/L (10-49); AST 17 U/L (14-35); Albumin 4.8 g/dL (3.8-4.9); Alkaline Phosphatase 46 U/L (41-126); Carbon Dioxide 25.8 mmol/L (21.6-31.8); Chloride 105 mmol/L (96-109); Globulin 2.4 g/dL (1.6-3.3); Potassium 4.4 mmol/L (3.5-5.5); Prostate Specific Antigen 1.88 ng/mL (0.000-3.500); Sodium 142 mmol/L (135-145); Total Bilirubin 0.6 mg/dL (0.3-1.2); Total Protein 7.2 g/dL (6.2-8.2)
[2024-04-01 17:03] LABS: Vitamin B12 >3600.0 pg/mL (200.0-944.0)
== END | disposition home or self-care (01) ==
LOC: LABWHC1 09:37
PROVIDERS: ATTEND Internal Medicine
DX: Z00.00 Encounter for general adult medical examination without abnormal findings (principal); Z12.5 Encounter for screening for malignant neoplasm of prostate; E83.52 Hypercalcemia; E53.8 Deficiency of other specified B group vitamins
CPT/HCPCS: 36415; 80053; 82607; 82728; 82746; 83540; 83550; 84153; 84443; 85025

== ENCOUNTER 2024-04-05 09:58 | Outpatient (CLI) | payer OTHER ==
--- NOTE | 2024-04-05 15:52 | US ---
EXAMINATION TYPE: US liver DATE OF EXAM: 04/05/2024 COMPARISON: CT 01/01/2024 US 10/29/2018 CLINICAL INDICATION: Male, 54 years old with history of R74.01 ELEVATION OF LEVELS OF LIVER TRANSAMIN ASE L; Hx Cholecystectomy 2013; Patient denies any other signs, symptoms, or relevant history TECHNIQUE: Grayscale and color Doppler imaging of the right upper quadrant was performed. FINDINGS: EXAM MEASUREMENTS: Liver Length: 13.6 cm Gallbladder Wall: Surgically absent cm CBD: 0.5 cm Right Kidney: 10.8 x 4.9 x 5.0 cm CARE MANAGER NOTES: Pancreas: wnl Liver: No dilated ducts, masses or cystic structures. Gallbladder: Surgically absent Evidence for sonographic Rodriguez's sign: NA CBD: wnl Right Kidney: wnl IMPRESSION: 1. No evidence for acute process. 2. Normal sonographic appearance of the liver [facility], , 04/05/2024 3:50 PM
== END 2024-04-16 05:15 | disposition home or self-care (01) ==
LOC: RADUSWWP 09:58
PROVIDERS: ATTEND Internal Medicine
DX: R74.01 Elevation of levels of liver transaminase levels (principal); Z90.49 Acquired absence of other specified parts of digestive tract
CPT/HCPCS: 76705

== ENCOUNTER → 2024-05-06 | Outpatient (CLI) | payer OTHER ==
--- NOTE | 2024-05-06 09:38 | CTL ---
EXAMINATION TYPE: CT Low Dose Lung DATE OF EXAM ORDERED: 05/06/2024 COMPARISON: CT Low Dose Lung 05/03/2023, 05/13/2021, CT chest 04/30/2022, 10/30/2021 CLINICAL INDICATION: Male, 54 years old with history of F17.210 personal hx tobacco use; PHH, former smoker, quit in 2012, smoked 1 PPD x30 years., Lung cancer screening, History of Smoking/tobacco use. TECHNIQUE: Low dose computed tomography scan was performed through the chest at 1 mm thick sections a nd reconstructed images in multiple planes at 1 mm and [address] DLP: 80.[address] CTDI: 2.1 mGy Automated exposure control for dose reduction was used. CT DIAGNOSTIC QUALITY: Satisfactory FINDINGS: Nodules: Couple of anterior right lobe upper lobe inferior calcification granulomas. No new or enlarging pulmonary nodules. LUNGS: COPD: Severity: None Fibrosis: Severity: None Lymph nodes: No enlarged lymph nodes. Calcified mediastinal and right hilar granulomas. Other findings: None RIGHT PLEURAL SPACE: Effusion: None Calcification: None Thickening: None Pneumothorax: None LEFT PLEURAL SPACE: Effusion: None Calcification: None Thickening: None Pneumothorax: None HEART: Heart Size: Normal Coronary Calcification: None Pericardial Effusion: None OTHER FINDINGS: Upper abdomen: Gallbladder is surgically absent. Calcified granuloma within the spleen. Bony thorax: None Supraclavicular region: None Other: None IMPRESSION: Couple of calcified granulomas. No new or enlarging pulmonary nodules. CT LUNG RAD AND CT CHEST RECOMMENDATION: Lung-Rad 2 Benign Appearance or Behavior: Continue annual sc reening with LDCT in 12 months. S Modifier (other clinically significant findings): None [facility], , 05/06/2024 9:36 AM
== END | disposition home or self-care (01) ==
LOC: RADCTMAIN 09:06
PROVIDERS: ATTEND Internal Medicine
DX: Z12.2 Encounter for screening for malignant neoplasm of respiratory organs (principal); R91.1 Solitary pulmonary nodule; Z87.891 Personal history of nicotine dependence; J84.10 Pulmonary fibrosis, unspecified
CPT/HCPCS: 71271

== ENCOUNTER → 2024-08-22 | Outpatient (CLI) | payer OTHER ==
--- NOTE | 2024-08-22 09:03 | US ---
EXAMINATION TYPE: US carotid duplex BILAT DATE OF EXAM: 08/22/2024 COMPARISON: US 05/13/2021 CLINICAL INDICATION: Male, 54 years old with history of H53.9 VISION CHANGES; Vision disturbances, fl oaters. Additional History: .... TECHNIQUE: Grayscale, color Doppler and spectral Doppler evaluation of the bilateral carotid systems and vertebral arteries. Indirect Doppler criteria was utilized. FINDINGS: EXAM MEASUREMENTS: RIGHT: Peak Systolic Velocity (PSV) cm/sec ----- Right CCA: 85.3 ----- Right ICA: 87.5 ----- Right ECA: 80.9 ICA/CCA ratio: 1.0 RIGHT: End Diastole cm/sec ----- Right CCA: 30.0 ----- Right ICA: 38.0 ----- Right ECA: 20.4 LEFT: Peak Systolic Velocity (PSV) cm/sec ----- Left CCA: 115.7 ----- Left ICA: 84.2 ----- Left ECA: 101.7 ICA/CCA ratio: 0.7 LEFT: End Diastole cm/sec ----- Left CCA: 30.0 ----- Left ICA: 19.3 ----- Left ECA: 13.7 VERTEBRALS (direction of flow): Right Vertebral: Antegrade Left Vertebral: Antegrade Rhythm: Normal GAME ENGINEER NOTES: Color Doppler imaging shows patency with blood flow throughout the carotid artery. Spectral waveforms are within normal limits. IMPRESSION: Right: No hemodynamically significant stenosis. Left: No hemodynamically significant stenosis. Criteria for Assigning % of Stenosis / Diameter reduction (Estimation based on the indirect measurements of the internal carotid artery velocities (ICA PSV). 1. Normal (no stenosis)=ICA PSV < 180 cm/s: ratio < 2.0: ICA EDV<40 cm/s. 2. Less than 50% stenosis=ICA PSV < 180 cm/s: ratio < 2.0: ICA EDV<40 cm/s. 3. 50 to 69% stenosis=ICA PSV of 180 to 230 cm/s: ration 2.0 ? 4.0: ICA EDV 40-100 cm/s. PSV 125-180 cm/sec and ICA/CCA PSV Ratio ? 2.0 is also consistent with 50-69% stenosis 4. Greater than 70% stenosis to near occlusion= ICA PSV > 230 cm/s: ratio > 4.0: ICA EDV > 100 cm/s. 5. Near occlusion= ICA PSV velocities may be low or undetectable: variable ratio and ICA EDV. 6. Total occlusion=unable to detect flow. [facility], , 08/22/2024 9:01 AM
== END | disposition home or self-care (01) ==
LOC: RADUSWWP 08:10
PROVIDERS: ATTEND Internal Medicine
DX: H53.9 Unspecified visual disturbance (principal)
CPT/HCPCS: 93880